=== PATIENT | male | born 1995 | race Caucasian/White ===

== ENCOUNTER 2025-02-27 05:54 | Emergency (ER) | payer OTHER ==
[~2025-02-27] VITALS: Ht 190.5 cm; Wt 90.9 kg
[2025-02-27 06:23] LABS: BASO # 0.0 10^3/uL (0.0-0.2); BASO % 0.3 % (0.0-1.0); EOS # 0.2 10^3/uL (0.0-0.5); EOS % 2.6 % (0.0-3.0); LYMPH # 2.1 10^3/uL (1.5-5.0); LYMPH % 36.0 % (24.0-44.0); MONO # 0.4 10^3/uL (0.0-0.8); MONO % 7.3 % (2.0-8.0); NEUTROPHILS # 3.1 10^3/uL (1.5-8.5); NEUTROPHILS % 53.6 % (36.0-66.0); PLATELET COUNT, AUTOMATED 213 10^3/uL (150-450)
[2025-02-27 06:49] LABS: CALCIUM LEVEL 9.5 MG/DL (8.5-10.1); CARBON DIOXIDE LEVEL 28 MMOL/L (20-31); CHLORIDE LEVEL 104 MMOL/L (98-107); CK-MB VALUE MASS < 1.0 NG/ML (<3.6); CREATININE FOR GFR 1.17 MG/DL (0.70-1.30); GLOMERULAR FILTRATION RATE 86.5 (>60); POTASSIUM SERUM 4.3 MMOL/L (3.5-5.1); SODIUM LEVEL 144 MMOL/L (136-145)
[2025-02-27 06:50] LABS: CPK CREATINE PHOSPHOKINASE 88 U/L (46-171)
[2025-02-27 07:41] VITALS: BP 129/79
[2025-02-27] MEDS: METOPROLOL TART 50 MG TAB PO ONE (07:41)
[2025-02-27 07:44] LABS: ETHYL ALCOHOL (ETHANOL) 0.003 % (0.000-0.010); MAGNESIUM LEVEL 1.9 MG/DL (1.8-2.4)
[2025-02-27 07:47] LABS: CK-MB VALUE MASS < 1.0 NG/ML (<3.6)
[2025-02-27 07:53] LABS: CPK CREATINE PHOSPHOKINASE 79 U/L (46-171)
[2025-02-27 08:22] LABS: AMPHETAMINES LEVEL URINE NEGATIVE (NEGATIVE); BARBITURATES URINE NEGATIVE (NEGATIVE); BENZODIAZEPINES URINE NEGATIVE (NEGATIVE); CANNABINOIDS URINE NEGATIVE (NEGATIVE); COCAINE METABOLITE URINE NEGATIVE (NEGATIVE); METHADONE URINE NEGATIVE (NEGATIVE); OPIATES URINE NEGATIVE (NEGATIVE); PHENCYCLIDINE URINE NEGATIVE (NEGATIVE)
[2025-02-27] MEDS ORDERED: METO1TAB7 PO ×2 (08:35→08:36)
[2025-02-27 08:59] VITALS: BP 125/83; TEMP 98; O2SAT 97
== END 2025-02-27 09:02 | disposition home or self-care (01) ==
LOC: M ED 05:54
DX: I48.91 Unspecified atrial fibrillation (principal); F43.10 Post-traumatic stress disorder, unspecified; F17.290 Nicotine dependence, other tobacco product, uncomplicated; F10.10 Alcohol abuse, uncomplicated; Z79.899 Other long term (current) drug therapy